=== PATIENT | female | born 1945 | race Caucasian/White ===

== ENCOUNTER → 2017-05-04 | Outpatient (CLI) | payer MEDICARE, OTHER | END | disposition home or self-care (01) | LOC: RAD 16:45 | PROVIDERS: ATTEND Neurological Surgery | DX: M41.84 Other forms of scoliosis, thoracic region (principal); M47.892 Other spondylosis, cervical region; M48.02 Spinal stenosis, cervical region; M25.78 Osteophyte, vertebrae; M46.1 Sacroiliitis, not elsewhere classified | CPT/HCPCS: 72082 ==